=== PATIENT | male | born 1935 | race Caucasian/White ===

== ENCOUNTER 2021-11-04 12:14 | Inpatient (IN) | payer MEDICARE, MEDICAID ==
[2021-11-04 13:24] LABS: CHLORIDE,CL 104 mmol/L (98-107); SODIUM,NA 141 mmol/L (136-145)
[2021-11-04 13:26] LABS: ANION GAP 9.2 mmol/L (5-15)
[2021-11-04] MEDS ORDERED: Furosemide 20 MG/2 ML VIAL IV ONE (13:35)
[2021-11-04] MEDS ORDERED: Potassium Chloride 10 MEQ Tab.ER PO ONE (13:35)
[2021-11-04] MEDS ORDERED: Acetaminophen 325 MG Tab PO PRN (15:57)
[2021-11-04] MEDS ORDERED: Ondansetron 4 MG/2 ML SDV IV PRN (15:57)
[2021-11-04] MEDS ORDERED: Lisinopril 5 MG Tab PO SCH (16:00)
[2021-11-04] MEDS: Lisinopril 5 MG Tab PO SCH ×2 (17:42→19:49)
[2021-11-04] MEDS: Sulfamethoxazole/Trimethoprim 800-160 MG Tab PO SCH ×2 (17:43→19:49)
[2021-11-04] MEDS: Potassium Chloride 10 MEQ Tab.ER PO SCH (17:43)
[2021-11-04] MEDS: Divalproex Sodium Delayed-Release 250 MG Tab.CR PO SCH (19:49)
[2021-11-04] MEDS: Sodium Chloride 0.9% 10 ML Syringe FLUSH PRN (19:58)
[2021-11-05 07:47] LABS: CHLORIDE,CL 108 mmol/L (98-107); SODIUM,NA 144 mmol/L (136-145)
[2021-11-05 07:49] LABS: ANION GAP 8.8 mmol/L (5-15)
[2021-11-05] MEDS ORDERED: [UNRECOGNIZED DRUG - MIXTURE] PO SCH (08:00)
[2021-11-05] MEDS: Polyethylene Glycol 3350 Powder 17 GM Packet PO SCH (09:06)
[2021-11-05] MEDS: Divalproex Sodium Delayed-Release 250 MG Tab.CR PO SCH ×2 (09:06→19:23)
[2021-11-05] MEDS: Lisinopril 5 MG Tab PO SCH ×2 (09:06→19:23)
[2021-11-05] MEDS: Potassium Chloride 10 MEQ Tab.ER PO SCH ×2 (09:07→19:17)
[2021-11-05] MEDS: Vitamin B Complex Tab PO SCH (09:07)
[2021-11-05] MEDS: Cranberry 500 MG Cap PO SCH (09:07)
[2021-11-05] MEDS: Sulfamethoxazole/Trimethoprim 800-160 MG Tab PO SCH ×2 (09:07→19:23)
[2021-11-05] MEDS: Cholecalciferol (Vitamin D3) 5,000 UNIT Tab PO SCH (09:11)
[2021-11-05] MEDS ORDERED: Furosemide 20 MG/2 ML VIAL IV ONE (10:14)
[2021-11-05] MEDS ORDERED: Enoxaparin 40 MG/0.4 ML Syringe SUBCUT SCH (12:00)
[2021-11-05] MEDS: Enoxaparin 40 MG/0.4 ML Syringe SUBCUT SCH (20:20)
[2021-11-05] MEDS: Sodium Chloride 0.9% 10 ML Syringe FLUSH PRN (20:22)
[2021-11-06] MEDS: Polyethylene Glycol 3350 Powder 17 GM Packet PO SCH (07:46)
[2021-11-06] MEDS: Divalproex Sodium Delayed-Release 250 MG Tab.CR PO SCH ×2 (07:46→20:10)
[2021-11-06] MEDS: Lisinopril 5 MG Tab PO SCH ×2 (07:46→20:10)
[2021-11-06] MEDS: Sulfamethoxazole/Trimethoprim 800-160 MG Tab PO SCH ×2 (07:47→20:10)
[2021-11-06] MEDS: Potassium Chloride 10 MEQ Tab.ER PO SCH ×2 (07:47→18:48)
[2021-11-06] MEDS: Cranberry 500 MG Cap PO SCH (07:47)
[2021-11-06] MEDS: Vitamin B Complex Tab PO SCH (07:47)
[2021-11-06] MEDS: Cholecalciferol (Vitamin D3) 5,000 UNIT Tab PO SCH (07:47)
[2021-11-06 08:36] LABS: CHLORIDE,CL 105 mmol/L (98-107); SODIUM,NA 140 mmol/L (136-145)
[2021-11-06 08:43] LABS: ANION GAP 7.7 mmol/L (5-15)
[2021-11-06] MEDS ORDERED: Magnesium Sulfate/Water 2 GM in Premix Bag 1 BAG IV ONE (08:56)
[2021-11-06] MEDS ORDERED: Furosemide 20 MG/2 ML VIAL IV ONE (08:56)
[2021-11-06] MEDS ORDERED: Hypromellose 0.3% Ophth Soln 15 ML Bottle EYEBOTH PRN (12:25)
[2021-11-06] MEDS: Enoxaparin 40 MG/0.4 ML Syringe SUBCUT SCH (20:16)
[2021-11-07 02:26] VITALS: PULSE 70
[2021-11-07 06:36] VITALS: BP 134/88
[2021-11-07 07:14] LABS: CHLORIDE,CL 104 mmol/L (98-107); SODIUM,NA 138 mmol/L (136-145)
[2021-11-07] MEDS ORDERED: Furosemide 20 MG Tab PO SCH (08:30)
[2021-11-07] MEDS ORDERED: Bisacodyl 10 MG Supp RECTAL PRN (08:54)
[2021-11-07] MEDS: Polyethylene Glycol 3350 Powder 17 GM Packet PO SCH (09:31)
[2021-11-07] MEDS: Cholecalciferol (Vitamin D3) 5,000 UNIT Tab PO SCH (09:32)
[2021-11-07] MEDS: Potassium Chloride 10 MEQ Tab.ER PO SCH (09:32)
[2021-11-07] MEDS: Cranberry 500 MG Cap PO SCH (09:32)
[2021-11-07] MEDS: Divalproex Sodium Delayed-Release 250 MG Tab.CR PO SCH (09:32)
[2021-11-07] MEDS: Vitamin B Complex Tab PO SCH (09:33)
[2021-11-07] MEDS: Lisinopril 5 MG Tab PO SCH (09:33)
[2021-11-08] MEDS ORDERED: Lisinopril 5 MG Tab PO SCH (08:00)
== END 2021-11-07 10:03 | disposition swing bed (61) | DRG 292 ==
LOC: VM.ED 12:14 → VM.MS 13:36
PROVIDERS: ADMIT Internal Medicine; ATTEND Internal Medicine
DX: I11.0 Hypertensive heart disease with heart failure (principal); N39.0 Urinary tract infection, site not specified; I16.0 Hypertensive urgency; I50.9 Heart failure, unspecified; G40.909 Epilepsy, unspecified, not intractable, without status epilepticus; B96.89 Other specified bacterial agents as the cause of diseases classified elsewhere; Z20.822 Contact with and (suspected) exposure to COVID-19; E87.5 Hyperkalemia; E87.6 Hypokalemia; D64.9 Anemia, unspecified; E83.42 Hypomagnesemia; Z91.14 Patient's other noncompliance with medication regimen; F70 Mild intellectual disabilities; R62.50 Unspecified lack of expected normal physiological development in childhood; E55.9 Vitamin D deficiency, unspecified; Z79.899 Other long term (current) drug therapy; Z88.0 Allergy status to penicillin; Z88.8 Allergy status to other drugs, medicaments and biological substances; Z91.018 Allergy to other foods
CPT/HCPCS: 36415; 71045; 74019; 80048; 80053; 81001; 82550; 83615; 83735; 83880; 84484; 85025; 86140; 87086; 87088; 99284; A9270-GY; J1650; J1940; J3475; J3490; U0002

== ENCOUNTER 2021-11-07 09:12 | Inpatient (IN) | payer MEDICARE, MEDICAID ==
[2021-11-07] MEDS ORDERED: Ondansetron 4 MG/2 ML SDV IV PRN ×2 (12:14→12:32)
[2021-11-07] MEDS ORDERED: Acetaminophen 325 MG Tab PO PRN ×2 (12:14→12:32)
[2021-11-07] MEDS ORDERED: Bisacodyl 10 MG Supp RECTAL PRN ×2 (12:14→12:32)
[2021-11-07] MEDS ORDERED: Hypromellose 0.3% Ophth Soln 15 ML Bottle EYEBOTH PRN (12:32)
[2021-11-07] MEDS: Divalproex Sodium Delayed-Release 250 MG Tab.CR PO SCH (20:04)
[2021-11-07] MEDS: Hypromellose 0.3% Ophth Soln 15 ML Bottle EYEBOTH PRN (20:06)
[2021-11-07] MEDS ORDERED: Divalproex Sodium Delayed-Release 250 MG Tab.CR PO SCH (21:00)
[2021-11-08] MEDS ORDERED: Lisinopril 5 MG Tab PO SCH (08:00)
[2021-11-08] MEDS: Lisinopril 5 MG Tab PO SCH ×2 (08:59→12:04)
[2021-11-08] MEDS: Cholecalciferol (Vitamin D3) 5,000 UNIT Tab PO SCH (08:59)
[2021-11-08] MEDS: Furosemide 20 MG Tab PO SCH (08:59)
[2021-11-08] MEDS: Divalproex Sodium Delayed-Release 250 MG Tab.CR PO SCH ×2 (08:59→20:46)
[2021-11-08] MEDS: Cranberry 500 MG Cap PO SCH (08:59)
[2021-11-08] MEDS: Vitamin B Complex Tab PO SCH (08:59)
[2021-11-08] MEDS ORDERED: Furosemide 20 MG Tab PO SCH (09:00)
[2021-11-08] MEDS ORDERED: Polyethylene Glycol 3350 Powder 17 GM Packet PO SCH (09:00)
[2021-11-08] MEDS ORDERED: Cranberry 500 MG Cap PO SCH (09:00)
[2021-11-08] MEDS ORDERED: Cholecalciferol (Vitamin D3) 5,000 UNIT Tab PO SCH (09:00)
[2021-11-08] MEDS: Polyethylene Glycol 3350 Powder 17 GM Packet PO SCH (09:00)
[2021-11-08] MEDS ORDERED: Vitamin B Complex Tab PO SCH (09:00)
[2021-11-08] MEDS: Hypromellose 0.3% Ophth Soln 15 ML Bottle EYEBOTH PRN (20:46)
[2021-11-09 06:11] VITALS: PULSE 66
[2021-11-09 07:10] LABS: ANION GAP 10.4 mmol/L (5-15); CHLORIDE,CL 103 mmol/L (98-107); SODIUM,NA 138 mmol/L (136-145)
[2021-11-09] MEDS ORDERED: Aspirin 81 MG Tab.Chew PO SCH (09:00)
[2021-11-09] MEDS: Vitamin B Complex Tab PO SCH (10:09)
[2021-11-09] MEDS: Divalproex Sodium Delayed-Release 250 MG Tab.CR PO SCH (10:09)
[2021-11-09] MEDS: Furosemide 20 MG Tab PO SCH (10:09)
[2021-11-09] MEDS: Cranberry 500 MG Cap PO SCH (10:09)
[2021-11-09] MEDS: Lisinopril 5 MG Tab PO SCH (10:10)
[2021-11-09] MEDS: Cholecalciferol (Vitamin D3) 5,000 UNIT Tab PO SCH (10:10)
[2021-11-09] MEDS: Polyethylene Glycol 3350 Powder 17 GM Packet PO SCH (10:11)
[2021-11-09 10:12] VITALS: BP 134/66
== END 2021-11-09 14:00 | DRG 948 ==
LOC: VM.MS 10:18
PROVIDERS: ADMIT Internal Medicine; ATTEND Internal Medicine
PROC: XW023S6 Introduction of COVID-19 Vaccine Dose 1 into Muscle, Percutaneous Approach, New Technology Group 6 (ICD-10-PCS; principal; 2021-11-07)
DX: R53.81 Other malaise (principal); N39.0 Urinary tract infection, site not specified; I11.0 Hypertensive heart disease with heart failure; I16.0 Hypertensive urgency; D64.9 Anemia, unspecified; I50.9 Heart failure, unspecified; Z20.822 Contact with and (suspected) exposure to COVID-19; F70 Mild intellectual disabilities; R29.6 Repeated falls; E83.42 Hypomagnesemia; E87.6 Hypokalemia; E78.5 Hyperlipidemia, unspecified; G40.909 Epilepsy, unspecified, not intractable, without status epilepticus; G31.84 Mild cognitive impairment of uncertain or unknown etiology; Z91.14 Patient's other noncompliance with medication regimen; Z79.82 Long term (current) use of aspirin; Z79.899 Other long term (current) drug therapy; Z88.8 Allergy status to other drugs, medicaments and biological substances; Z88.0 Allergy status to penicillin; Z91.018 Allergy to other foods
CPT/HCPCS: 36415; 80048; 85025; 97110-GP; 97116-GP; 97162-GP; 97165-GO; A9270-GY; U0002

== ENCOUNTER 2023-07-08 12:08 | Inpatient (IN) | payer MEDICARE, MEDICAID ==
[2023-07-08] MEDS ORDERED: cefTRIAXone 1 GM Vial IVPUSH ONE (12:20)
[2023-07-08] MEDS ORDERED: Sodium Chloride 0.9% 1,000 ML IV ONE (12:20)
[2023-07-08] MEDS ORDERED: Sodium Chloride 0.9% 10 ML Syringe FLUSH PRN (12:20)
[2023-07-08 12:34] LABS: HEMATOCRIT 34.9 % (40.0-52.0); HEMOGLOBIN 11.5 g/dL (14.0-18.0); MEAN CORPUSCULAR HEMOGLOBIN 31.3 pg (26.0-32.0); MEAN CORPUSCULAR VOLUME 95.1 fL (78.0-93.0); PLATELET COUNT,PLT 245 x10^3/uL (130-400); RED BLOOD CELL COUNT 3.67 x10^6/uL (4.5-6.0); WHITE BLOOD CELL COUNT,WBC 13.7 x10^3/uL (4.0-10.0)
[2023-07-08 12:41] LABS: BAND PERCENT MAN 2 % (0-6); BASOPHILS ABSOLUTE MAN 0.1 x10^3/uL (0.0-0.2); BASOPHILS PERCENT MAN 1 % (0-1); EOSINOPHILS ABSOLUTE MAN 0.1 x10^3/uL (0.0-0.5); EOSINOPHILS PERCENT MAN 1 % (0-4); HYPERSEGMENTED NEUTROPHILS FEW; LYMPHOCYTES ABSOLUTE MAN 1.1 x10^3/uL (1.0-4.8); LYMPHOCYTES PERCENT MAN 8 % (25-50); MONOCYTES ABSOLUTE MAN 1.1 x10^3/uL (0.0-0.8); MONOCYTES PERCENT MAN 8 % (2-11); NEUTROPHILS ABSOLUTE MAN 11.2 x10^3/uL (1.8-7.7); PLATELET COUNT ESTIMATE ADEQUATE; SEG NEUTROPHILS PERCENT MAN 80 % (50-80)
[2023-07-08 12:53] LABS: LACTIC ACID 1.2 mmol/L (0.4-2.0)
[2023-07-08 12:59] LABS: A/G RATIO 0.49; ALANINE AMINOTRANSFERASE,ALT 28 U/L (16-63); ALBUMIN 2.2 g/dL (3.4-5.0); ALKALINE PHOSPHATASE 339 U/L (46-116); ANION GAP 17.5 mmol/L (5-15); ASPARTATE AMNIOTRANSFERASE,AST 41 U/L (15-37); BILIRUBIN TOTAL 0.7 mg/dL (0.2-1.0); BLOOD UREA NITROGEN,BUN 48 mg/dL (7-18); C-REACTIVE PROTEIN 12.75 mg/dL (<=0.50); CALCIUM 8.3 mg/dL (8.5-10.1); CARBON DIOXIDE,CO2 27 mmol/L (21-32); CHLORIDE,CL 105 mmol/L (98-107); CREATININE 1.7 mg/dL (0.70-1.30); GLUCOSE RANDOM 107 mg/dL (70-99); POTASSIUM,K 4.5 mmol/L (3.5-5.1); PROTEIN TOTAL,TP 6.7 g/dL (6.4-8.2); SODIUM,NA 145 mmol/L (136-145)
[2023-07-08 13:00] LABS: ESTIMATED GFR 38 mL/min (>=60)
[2023-07-08 13:21] LABS: CORONAVIRUS COVID-19 NAA NEGATIVE (NEGATIVE); INFLUENZA A NAA NEGATIVE (NEGATIVE); INFLUENZA B NAA NEGATIVE (NEGATIVE); RESPIRATORY SYNCYTIAL VIR NAA NEGATIVE (NEGATIVE)
[2023-07-08 13:26] LABS: APPEARANCE,URINE CLEAR (CLEAR); BILIRUBIN,URINE SMALL (NEGATIVE); COLOR,URINE DARK YELLOW (YELLOW); GLUCOSE,URINE NEGATIVE (NEGATIVE); KETONES,URINE TRACE mg/dL (NEGATIVE); LEUKOCYTE ESTERASE,URINE NEGATIVE (NEGATIVE); NITRITE,URINE NEGATIVE (NEGATIVE); OCCULT BLOOD,URINE NEGATIVE (NEGATIVE); PROTEIN,URINE TRACE mg/dL (NEGATIVE)
[2023-07-08] MEDS ORDERED: Iopamidol 612 MG/ML 100 ML Bottle IVPUSH ONE (13:27)
[2023-07-08 13:32] LABS: BACTERIA,URINE RARE /HPF (NOT SEEN); MUCUS,URINE OCCASIONAL /LPF (NOT SEEN); RBC,URINE 0-5 /HPF (NOT SEEN); SQUAMOUS EPITHELIAL CELLS,UR NOT SEEN /HPF (NOT SEEN); WBC,URINE 0-5 /HPF (NOT SEEN)
[2023-07-08] MEDS ORDERED: Acetaminophen 325 MG Tab PO PRN ×2 (15:48→17:04)
[2023-07-08] MEDS ORDERED: Docusate Sodium 100 MG Cap PO PRN (15:48)
[2023-07-08] MEDS ORDERED: Ondansetron 4 MG Tab.DIS PO PRN (15:48)
[2023-07-08] MEDS ORDERED: Albuterol/Ipratropium 3.0-0.5 MG/3 ML Neb Soln NEB PRN (15:48)
[2023-07-08] MEDS: Sodium Chloride 0.9% 1,000 ML IV SCH (16:00)
[2023-07-08] MEDS ORDERED: Lidocaine 4% 1 each Patch TOP PRN (17:04)
[2023-07-08] MEDS ORDERED: traMADol 50 MG Tab PO PRN (17:04)
[2023-07-08] MEDS ORDERED: Calcium Carbonate 750 MG Tab.Chew PO PRN (17:04)
[2023-07-08] MEDS ORDERED: Bisacodyl 5 MG Tab PO PRN (17:04)
[2023-07-08] MEDS ORDERED: tiZANidine 4 MG Tab PO PRN (17:04)
[2023-07-08] MEDS ORDERED: Naloxone 0.4 MG/ML SDV IVPUSH PRN (17:16)
[2023-07-08] MEDS: Divalproex Sodium Delayed-Release 250 MG Tab.CR PO SCH (21:45)
[2023-07-08] MEDS: Sennosides/Docusate Sodium 50-8.6 MG Tab PO SCH (21:45)
[2023-07-08] MEDS: Polyethylene Glycol 3350 Powder 17 GM Packet PO SCH (21:45)
[2023-07-08] MEDS: HYDROmorphone 0.5 MG/0.5 ML Syringe IVPUSH PRN (22:30)
[2023-07-09 07:50] LABS: HEMATOCRIT 32.4 % (40.0-52.0); HEMOGLOBIN 10.5 g/dL (14.0-18.0); MEAN CORPUSCULAR HEMOGLOBIN 31.4 pg (26.0-32.0); MEAN CORPUSCULAR HGB CONC 32.4 g/dL (32.0-36.0); PLATELET COUNT,PLT 207 x10^3/uL (130-400); RED BLOOD CELL COUNT 3.34 x10^6/uL (4.5-6.0); WHITE BLOOD CELL COUNT,WBC 12.6 x10^3/uL (4.0-10.0)
[2023-07-09 08:02] LABS: BAND PERCENT MAN 3 % (0-6); BASOPHILS ABSOLUTE MAN 0.3 x10^3/uL (0.0-0.2); BASOPHILS PERCENT MAN 2 % (0-1); EOSINOPHILS ABSOLUTE MAN 0.1 x10^3/uL (0.0-0.5); EOSINOPHILS PERCENT MAN 1 % (0-4); HYPOCHROMASIA 1+ SLIGHT; LYMPHOCYTES ABSOLUTE MAN 1.1 x10^3/uL (1.0-4.8); LYMPHOCYTES PERCENT MAN 9 % (25-50); MONOCYTES PERCENT MAN 8 % (2-11); NEUTROPHILS ABSOLUTE MAN 10.1 x10^3/uL (1.8-7.7); OVALOCYTES 1+ SLIGHT; PLATELET COUNT ESTIMATE ADEQUATE; SEG NEUTROPHILS PERCENT MAN 77 % (50-80)
[2023-07-09 08:03] LABS: BLOOD UREA NITROGEN,BUN 37 mg/dL (7-18); C-REACTIVE PROTEIN 13.75 mg/dL (<=0.50); CARBON DIOXIDE,CO2 27 mmol/L (21-32); CHLORIDE,CL 109 mmol/L (98-107); CREATININE 1.2 mg/dL (0.70-1.30); GLUCOSE RANDOM 117 mg/dL (70-99); POTASSIUM,K 4.5 mmol/L (3.5-5.1); SODIUM,NA 146 mmol/L (136-145)
[2023-07-09 08:07] LABS: ANION GAP 14.5 mmol/L (5-15); ESTIMATED GFR 58 mL/min (>=60)
[2023-07-09] MEDS: HYDROmorphone 0.5 MG/0.5 ML Syringe IVPUSH PRN ×2 (08:59→15:51)
[2023-07-09] MEDS ORDERED: Furosemide 40 MG Tab PO SCH (09:00)
[2023-07-09] MEDS ORDERED: Furosemide 20 MG Tab PO SCH (09:00)
[2023-07-09] MEDS: Aspirin 81 MG Tab.Chew PO SCH (09:02)
[2023-07-09] MEDS: Cholecalciferol (Vitamin D3) 5,000 UNIT Tab PO SCH (09:02)
[2023-07-09] MEDS: Famotidine 20 MG Tab PO SCH (09:02)
[2023-07-09] MEDS: Lisinopril 5 MG Tab PO SCH (09:03)
[2023-07-09] MEDS: Divalproex Sodium Delayed-Release 250 MG Tab.CR PO SCH ×2 (09:03→20:39)
[2023-07-09] MEDS: cefTRIAXone 1 GM Vial IVPUSH SCH (09:14)
[2023-07-09] MEDS: Polyethylene Glycol 3350 Powder 17 GM Packet PO SCH ×2 (09:15→20:38)
[2023-07-09] MEDS: Sennosides/Docusate Sodium 50-8.6 MG Tab PO SCH ×2 (09:15→20:39)
[2023-07-09] MEDS: Sodium Chloride 0.9% 1,000 ML IV SCH ×2 (10:05→20:37)
[2023-07-09] MEDS ORDERED: Enoxaparin 40 MG/0.4 ML Syringe SUBCUT SCH (12:00)
[2023-07-10] MEDS: Sodium Chloride 0.9% 1,000 ML IV SCH (06:21)
[2023-07-10 06:54] LABS: HEMATOCRIT 30.3 % (40.0-52.0); HEMOGLOBIN 9.7 g/dL (14.0-18.0); MEAN CORPUSCULAR HEMOGLOBIN 31.4 pg (26.0-32.0); MEAN CORPUSCULAR VOLUME 98.1 fL (78.0-93.0); PLATELET COUNT,PLT 217 x10^3/uL (130-400); RED BLOOD CELL COUNT 3.09 x10^6/uL (4.5-6.0); WHITE BLOOD CELL COUNT,WBC 10.5 x10^3/uL (4.0-10.0)
[2023-07-10 07:05] LABS: A/G RATIO 0.42; ALANINE AMINOTRANSFERASE,ALT 10 U/L (16-63); ALBUMIN 1.8 g/dL (3.4-5.0); ALKALINE PHOSPHATASE 279 U/L (46-116); ASPARTATE AMNIOTRANSFERASE,AST 26 U/L (15-37); BILIRUBIN TOTAL 0.3 mg/dL (0.2-1.0); BLOOD UREA NITROGEN,BUN 29 mg/dL (7-18); CALCIUM 8.2 mg/dL (8.5-10.1); CARBON DIOXIDE,CO2 26 mmol/L (21-32); CHLORIDE,CL 111 mmol/L (98-107); CREATININE 1.3 mg/dL (0.70-1.30); GLUCOSE RANDOM 129 mg/dL (70-99); POTASSIUM,K 3.9 mmol/L (3.5-5.1); PROTEIN TOTAL,TP 6.1 g/dL (6.4-8.2); SODIUM,NA 147 mmol/L (136-145)
[2023-07-10 07:06] LABS: ANION GAP 13.9 mmol/L (5-15); ESTIMATED GFR 53 mL/min (>=60)
[2023-07-10 07:08] LABS: BAND PERCENT MAN 3 % (0-6); BASOPHILS ABSOLUTE MAN 0.2 x10^3/uL (0.0-0.2); BASOPHILS PERCENT MAN 2 % (0-1); EOSINOPHILS ABSOLUTE MAN 0.3 x10^3/uL (0.0-0.5); EOSINOPHILS PERCENT MAN 3 % (0-4); LYMPHOCYTES % ATYPICAL MANUAL 3 % (0); LYMPHOCYTES ABSOLUTE MAN 1.4 x10^3/uL (1.0-4.8); LYMPHOCYTES PERCENT MAN 10 % (25-50); MONOCYTES ABSOLUTE MAN 0.9 x10^3/uL (0.0-0.8); MONOCYTES PERCENT MAN 9 % (2-11); NEUTROPHILS ABSOLUTE MAN 7.7 x10^3/uL (1.8-7.7); SEG NEUTROPHILS PERCENT MAN 70 % (50-80)
[2023-07-10 07:09] LABS: HYPOCHROMASIA 1+ SLIGHT; OVALOCYTES 1+ SLIGHT; PLATELET COUNT ESTIMATE ADEQUATE; SPHEROCYTES 1+ SLIGHT
[2023-07-10] MEDS: Famotidine 20 MG Tab PO SCH (08:05)
[2023-07-10] MEDS: Aspirin 81 MG Tab.Chew PO SCH (08:05)
[2023-07-10] MEDS: Divalproex Sodium Delayed-Release 250 MG Tab.CR PO SCH (08:06)
[2023-07-10] MEDS: Cholecalciferol (Vitamin D3) 5,000 UNIT Tab PO SCH (08:06)
[2023-07-10] MEDS: Lisinopril 5 MG Tab PO SCH (08:07)
[2023-07-10] MEDS: Polyethylene Glycol 3350 Powder 17 GM Packet PO SCH (08:07)
[2023-07-10] MEDS: cefTRIAXone 1 GM Vial IVPUSH SCH (08:11)
[2023-07-10] MEDS: Sennosides/Docusate Sodium 50-8.6 MG Tab PO SCH (08:12)
== END 2023-07-10 11:00 | DRG 871 ==
LOC: VM.ED 12:08 → VM.MS 14:59
PROVIDERS: ADMIT Physician Assistant; ATTEND Family Medicine
DX: S42.102A Fracture of unspecified part of scapula, left shoulder, initial encounter for closed fracture (principal); J96.01 Acute respiratory failure with hypoxia; M84.412A Pathological fracture, left shoulder, initial encounter for fracture; I50.32 Chronic diastolic (congestive) heart failure; N17.9 Acute kidney failure, unspecified; C79.51 Secondary malignant neoplasm of bone; A41.9 Sepsis, unspecified organism; D63.8 Anemia in other chronic diseases classified elsewhere; Z66 Do not resuscitate; E55.9 Vitamin D deficiency, unspecified; Z51.5 Encounter for palliative care; E78.00 Pure hypercholesterolemia, unspecified; K59.09 Other constipation; R62.50 Unspecified lack of expected normal physiological development in childhood; R65.20 Severe sepsis without septic shock; G40.909 Epilepsy, unspecified, not intractable, without status epilepticus; D50.8 Other iron deficiency anemias; G30.9 Alzheimer's disease, unspecified; F02.80 Dementia in other diseases classified elsewhere, unspecified severity, without behavioral disturbance, psychotic disturbance, mood disturbance, and anxiety; R91.8 Other nonspecific abnormal finding of lung field; F70 Mild intellectual disabilities; I11.0 Hypertensive heart disease with heart failure; I50.9 Heart failure, unspecified; Z88.0 Allergy status to penicillin; Z91.018 Allergy to other foods; Z88.8 Allergy status to other drugs, medicaments and biological substances; Z11.52 Encounter for screening for COVID-19; Z79.82 Long term (current) use of aspirin; Z79.899 Other long term (current) drug therapy; Z20.822 Contact with and (suspected) exposure to COVID-19
CPT/HCPCS: 0241U; 36415; 71045; 73020; 73201; 80048; 80053; 81001; 83605; 84145; 85025; 86140; 87040; 87070; 94760; 96365; 96375; 99285; 99284; A9270-GY; J0696; J1170; J1650; J3370; J7030; J7050; Q9967